=== PATIENT | male | born 1960 | race Caucasian/White ===

== ENCOUNTER 2016-10-07 21:27 | Inpatient (IN) | payer OTHER ==
--- NOTE | ~2016-10-07 | HP ---
Unit #: [id number] #: [id number] Patient: [facility]OS RUBIN [id number] [facility] [address] [place] [address] [id number] MR#: [id number] NAME: AMOS RUBIN ROOM: P210 Age: 56 Sex: M Admission Date: 10/07/2016 : 1960 Attending Physician: Darius Villegas M.D. Admitting Physician: Darius Villegas M.D. Primary Care Physician: Joaquina Uribe M.D. HISTORY AND PHYSICAL HISTORY OF PRESENT ILLNESS Amos is a 56-year-old admitted to [address] [place] [address] because of his abuse of alcohol. PAST MEDICAL HISTORY 1. Long history of alcohol abuse. 2. Coronary artery disease. a. Four vessel CABG. 3. High blood pressure. 4. Hyperlipidemia. PAST SURGICAL HISTORY 1. Four vessel CABG. 2. Inguinal hernia repair. ALLERGIES No known drug allergies. SOCIAL HISTORY Smokes one pack per day. Drinks a half gallon of liquor on a daily basis and denies illicit drug use. FAMILY HISTORY Medically noncontributory. REVIEW OF SYSTEMS CONSTITUTIONAL: No fever or chills. HEENT: Denies any sore throat, ear pain or runny nose. CARDIOVASCULAR: Denies chest pain, irregular heart rhythm or palpitations. CHEST: Denies shortness of breath or cough. No hemoptysis. GASTROINTESTINAL: Denies nausea, vomiting, diarrhea or chronic constipation. ENDOCRINE: Denies history of increased thirst or urination. No recent significant weight loss or gain. GENITOURINARY: Denies dysuria, frequency, or hematuria. SKIN: Denies any rashes. HEMATOLOGIC: Denies history of increased bleeding or bruising. MUSCULOSKELETAL: Denies any hot, swollen joints. No generalized muscle pain. NEUROLOGIC: Denies problems with vision or speech. No frequent, severe headaches. No numbness, tingling or weakness in any extremities. Denies loss of bladder or bowel control. Unit #: [id number] #: [id number] Patient: AMOS RUBIN CURRENT MEDICATIONS 1. Detox protocol. 2. Lipitor 80 mg q h.s. 3. Vasotec 10 mg q h.s. 4. Neurontin 600 mg t.i.d. 5. Aspirin 81 mg q day. 6. Lopressor 50 mg b.i.d. PHYSICAL EXAMINATION GENERAL: Appearing much older than his stated age of 56. No apparent distress. VITAL SIGNS: Blood pressure 136/92, heart rate 100, respirations 16, temperature 98.6, weight 175, height 6 feet 0 inches. SKIN: Warm and dry without rash or lesion. HEENT: Normocephalic. TMs not viewed. Oral and nasal passages clear. Conjunctivae clear. PERRLA. EOMs intact. NECK: Supple without lymphadenopathy or thyromegaly. HEART: Regular rate and rhythm without murmur. LUNGS: Clear. ABDOMEN: Soft, nontender. : Not done. EXTREMITIES: No evidence of cyanosis, clubbing or edema. Moves all without focal deficit. NEUROLOGICAL: Grossly within normal limits. Cranial Nerves: II: Visual rodriguez are intact. III, IV AND : Extraocular movements are intact. Pupils are equal, round and reactive to light. V: Facial sensation is grossly normal. VII: Facial movements and expression are normal. VIII: Auditory acuity grossly intact. IX, X: Uvula is midline. Phonation is normal. XI: Patient shrugs shoulders and turns head normally. XII: Tongue protrudes in the midline. Sensory and Motor Function: Sensory and motor sensation is grossly normal. Motor: moves all extremities well. Coordination: Gait is normal. Deep Tendon Reflexes: Intact. IMPRESSION Psychiatric admission. RECOMMENDATIONS PSYCHIATRIC: Per psychiatrist. MEDICAL: I see no contraindication to participating in facility activities. MEDICAL PROGNOSIS Good. MEDICAL CONDITION Stable. Dictated by... Gretchen Tolbert P.A.-C. for Vin Pizano TD: 10/09/2016 06:07 JOB #: [id number] Unit #: [id number] #: [id number] Patient: AMOS RUBIN HISTORY AND PHYSICAL Page 1 of 1 X Gretchen Tolbert X HISTORY AND PHYSICAL
--- NOTE | ~2016-10-07 | PA ---
Unit #: [id number] #: [id number] Patient: AMOS ALEXANDER [id number] [facility] [address] [place] [address] [id number] MR#: [id number] NAME: AMOS ALEXANDER ROOM: [facility] Age: 56 Sex: M Admission Date: 10/07/2016 : 1960 Date of Assessment: 10/08/2016 Attending Physician: Darius Villegas M.D. Admitting Physician: Darius Villegas M.D. Primary Care Physician: Joaquina Uribe M.D. PSYCHIATRIC ASSESSMENT DATE OF SERVICE 10/08/2016. INFORMANTS The patient, reliable and OLOP, reliable. CHIEF COMPLAINT "I almost yesterday." HISTORY OF PRESENT ILLNESS Amos Alexander is a 56-year-old man, who reported that he has cardiac issues and has been drinking up to a gallon of vodka daily. He had vague suicidal ideation and fears that his heart would stop if he tried to detox at home. He also reported that he has not slept for eight days and presented with a labile and irritable mood and affect. He was admitted for alcohol detox. PAST PSYCHIATRIC HISTORY No previous inpatient treatment at this facility. He does not take psychiatric medications. FAMILY PSYCHIATRIC HISTORY There is no family history of mental illness or substance abuse. SOCIAL HISTORY The patient denied a history of childhood abuse or neglect. He is a single heterosexual man, who is on disability for cardiac issues. He also reports he recently lost a girlfriend. PAST MEDICAL HISTORY Significant for coronary artery disease as well as diet-controlled diabetes. MEDICATIONS Metoprolol, , doses and schedules to be determined. ALLERGIES No known medication allergies. SUBSTANCE USE HISTORY As noted, the patient is drinking up to a gallon of vodka daily. MENTAL STATUS EXAMINATION Amos presented as a disheveled man, who appeared older than his stated Unit #: [id number] #: [id number] Patient: AMOS ALEXANDER age. He stood 6 feet 0 inch tall and weighed 175 pounds. Vital signs; temperature 101.4, pulse 115, respirations 20, and blood pressure 136/92. His speech was soft, sparse, and he was difficult to awaken for an examination. Musculoskeletal examination demonstrated mild psychomotor agitation. A full mental status examination will be attempted when the patient is able to participate. ASSETS AND LIABILITIES The patient has connections with primary care and presents voluntarily for treatment. Liabilities include chronic alcoholism and difficulty tolerating withdrawal. ADMITTING DIAGNOSES AXIS I: Alcohol dependence with withdrawal, uncomplicated, F10.230 and substance-induced mood disorder, depressed. AXIS II: No diagnosis. AXIS III: Coronary artery disease, cardiomyopathy, and diabetes. AXIS IV: AXIS V: PSYCHIATRIC PLAN The patient was admitted and placed on suicide precautions and the alcohol detox protocol. His home medications will be determined and restarted and a medical consultation will be obtained. He will enroll in dual diagnosis groups and activities. TREATMENT GOALS Resolution of intoxication, resolution of SI, improvement in insight, and improvement in coping skills. DISCHARGE PLANNING [facility]. ESTIMATED LENGTH OF STAY 5 days. Dictated by... Darius Villegas M.D. BALDOMERO/rudy TD: 10/08/2016 20:54 JOB #: [id number] PSYCHIATRIC ASSESSMENT Page 1 of 1 X Darius Villegas MD X PSYCHIATRIC ASSESSMENT
[2016-10-08 09:39] LABS: BASOPHIL% 0.3 % (0-2.5); EOSINOPHIL% 0.2 % (0.0-7.0); HEMATOCRIT 40.1 % (38.0-50.0); HEMOGLOBIN 13.5 gm/dL (13.0-16.0); LYMPHOCYTE# 1.3 X10e3 (1.0-3.5); LYMPHOCYTE% 12.8 % (17.0-45.0); MEAN CELL VOLUME 87.8 FL (83-96); MEAN CORPUSCULAR HEMOGLOBIN 29.5 PG (28-34); MEAN CORPUSCULAR HGB CONC 33.6 g/dL (30-36); MEAN PLATELET VOLUME 8.7 FL (6.5-11.5); MONOCYTE# 0.5 X10e3 (0-1.0); NEUTROPHIL# 8.6 X10e3 (1.5-7.1); NEUTROPHIL% 81.7 % (40-75); RED BLOOD COUNT 4.56 X10e (3.90-5.60); RED CELL DISTRIBUTION WIDTH 13.9 % (11.0-15.5); WHITE BLOOD COUNT 10.5 X10e3 (4.0-10.5)
[2016-10-08 09:44] LABS: ALBUMIN SERUM 3.7 g/dL (3.5-5.0); BUN/CREATININE RATIO 18.57; CALCIUM SERUM 8.7 mg/dL (8.4-10.2); CREATININE SERUM 0.7 mg/dL (0.6-1.4); GLOM FILT RATE Estimated 105.5 mL/min (>60); POTASSIUM 4.8 mmol/L (3.5-5.1); PROTEIN TOTAL SERUM 5.9 g/dL (6.0-8.3)
[2016-10-08 10:28] LABS: DIFF IND YES; PLATELET COUNT 92 X10e3 (140-420)
[2016-10-08 10:31] LABS: PLATELET ESTIMATE DECREASED (NORMAL)
[2016-10-08 10:32] LABS: RBC NORMAL YES
[2016-10-10 09:39] LABS: URINE APPEARANCE CLEAR; URINE BILIRUBIN NEG (NEG); URINE BLOOD NEG (NEG); URINE COLOR DK YELLOW; URINE GLUCOSE 100 MG/DL (NEG); URINE KETONE NEG (NEG); URINE LEUKOCYTE ESTERASE NEG (NEG); URINE NITRATE NEG (NEG); URINE PROTEIN NEG (NEG)
[2016-10-10 10:29] LABS: AMPHETAMINE NEG (NEG); BARBITURATES NEG (NEG); BENZODIAZEPINES NEG (NEG); COCAINE NEG (NEG); MARIJUANA NEG (NEG); OPIATES NEG (NEG); TRICYCLIC ANTIDEPRESSANTS NEG (NEG); U METHADONE NEG (NEG)
== END 2016-10-10 14:06 | DRG 897 ==
LOC: P2S 21:27
PROVIDERS: Psychiatry & Neurology Psychiatry
PROC: HZ2ZZZZ Detoxification Services for Substance Abuse Treatment (ICD-10-PCS; principal; 2016-10-07)
DX: F10.230 Alcohol dependence with withdrawal, uncomplicated (principal); I42.9 Cardiomyopathy, unspecified; I10 Essential (primary) hypertension; I25.10 Atherosclerotic heart disease of native coronary artery without angina pectoris; Z95.1 Presence of aortocoronary bypass graft; E78.5 Hyperlipidemia, unspecified; F17.210 Nicotine dependence, cigarettes, uncomplicated; E11.9 Type 2 diabetes mellitus without complications
CPT/HCPCS: 80053; 80307; 81003; 85025; 86592